=== PATIENT | female | born 1995 | race Caucasian/White ===

== ENCOUNTER → 2018-02-03 | Emergency (ER) | payer SELFPAY ==
[~2018-02-03] VITALS: Ht 165.1 cm; Wt 62.1 kg
[2018-02-03 19:01] VITALS: BP 141/80
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
== END | disposition left against medical advice (07) ==
LOC: EMR 19:35
DX: R51 Headache (principal); Z53.21 Procedure and treatment not carried out due to patient leaving prior to being seen by health care provider
CPT/HCPCS: 99281